=== PATIENT | female | born 1970 | race Caucasian/White ===

== ENCOUNTER 2021-10-24 17:30 | Emergency (ER) | payer MEDICARE ==
[2021-10-24 19:38] LABS: HEMOGLOBIN 13.1 gm/dl (12.3-15.3); RED BLOOD COUNT 4.1 M/UL (4.00-5.10); WHITE BLOOD COUNT 5.1 K/UL (4.5-11.0)
[2021-10-24 20:01] LABS: BUN/CREATININE RATIO 16 (0-10)
[2021-10-25] MEDS ORDERED: COLACE100 MG PO (01:52)
== END 2021-10-25 02:00 | disposition home or self-care (01) ==
LOC: ER1 17:30
PROVIDERS: Physician Assistant
DX: R10.12 Left upper quadrant pain (principal); R50.9 Fever, unspecified; R09.81 Nasal congestion; R07.9 Chest pain, unspecified; R19.7 Diarrhea, unspecified; E11.9 Type 2 diabetes mellitus without complications; J45.909 Unspecified asthma, uncomplicated; I10 Essential (primary) hypertension; E07.9 Disorder of thyroid, unspecified; Z20.822 Contact with and (suspected) exposure to COVID-19; Z90.49 Acquired absence of other specified parts of digestive tract; Z90.710 Acquired absence of both cervix and uterus; Z90.89 Acquired absence of other organs
CPT/HCPCS: 0240U; 71045; 80053; 81001; 82150; 82550; 82553; 83690; 84484; 85025; 93005; 99284